=== PATIENT | female | born 1945 | race Caucasian/White ===

== ENCOUNTER 2023-04-08 00:02 | Inpatient (IN) | payer MEDICARE ==
[2023-04-08] MEDS ORDERED: Ondansetron PF 4 MG/2 ML Vial ONE ×2 (02:10→12:37)
[2023-04-08] MEDS ORDERED: Morphine 4 MG/ML VIAL ONE (02:10)
[2023-04-08 02:45] LABS: #Eosinphils 0.1 thou/uL (0.0-0.7); #Monocytes 0.6 thou/uL (0.11-0.59); #Neutrophils 6.8 thou/uL (1.40-6.50); %Basophils 0.3 % (0.0-1.0); %Eosinophils 0.9 % (0.0-10.0); %Lymphocytes 15.7 % (21.0-51.0); %Monocytes 7.1 % (0.0-10.0); %Neutrophils 75.7 % (42.0-75.0); Hematocrit 35.2 % (36.0-47.0); Hemoglobin 11.2 g/dL (12.0-16.0); Mean Corpuscular HGB CONC 31.8 g/dL (32.0-36.0); Mean Corpuscular Volume 94.4 fl (78.0-98.0); Mean Platelet Volume 13.1 fL (7.4-10.4); Platelet Count 193 10x3/uL (130-400); RBC Distribution Width 13.8 % (11.5-14.5); Red Blood Cell (RBC) Count 3.73 mill/uL (4.20-5.40)
[2023-04-08 03:12] LABS: ALT (SGPT) 10 U/L (8-55); AST (SGOT) 16 U/L (5-34); Albumin 4.1 g/dL (3.4-4.8); Alkaline Phosphatase 78 U/L (40-110); Anion Gap 15 mmol/L (10-20); BUN (Urea Nitrogen) 26 mg/dL (9.8-20.1); Bilirubin, Total 0.2 mg/dL (0.2-1.2); Calc. Creatinine Clearance 0 mL/min (70-130); Calcium 9.2 mg/dL (7.8-10.44); Carbon Dioxide 22 mmol/L (23-31); Chloride 103 mmol/L (98-107); Estimated GFR 54; Globulin 3.1 g/dL (2.4-3.5); Glucose 126 mg/dL (83-110); Potassium 3.8 mmol/L (3.5-5.1); Protein, Total 7.2 g/dL (5.8-8.1); Sodium 136 mmol/L (136-145)
[2023-04-08] MEDS: Morphine 4 MG/ML VIAL SLOW IVP PRN (05:44)
[2023-04-08 07:21] VITALS: BMI 23.0
[2023-04-08] MEDS ORDERED: Acetaminophen 325 MG TAB PO PRN (10:06)
[2023-04-08] MEDS ORDERED: Ondansetron PF 4 MG/2 ML Vial IVP PRN (10:07)
[2023-04-08] MEDS ORDERED: Ondansetron ODT 4 MG TAB PO PRN (10:08)
[2023-04-08] MEDS ORDERED: PROPOFOL 20 ML ONE (11:05)
[2023-04-08] MEDS ORDERED: Rocuronium Bromide 10 MG/ML (10ML VIAL) ONE (11:05)
[2023-04-08] MEDS ORDERED: fentaNYL PF 100 MCG/2 ML SYRINGE ONE (11:05)
[2023-04-08] MEDS ORDERED: Sodium Chloride 0.9% 100 ML ONE (11:17)
[2023-04-08] MEDS ORDERED: CEFAZOLIN 2 GM VIAL ONE (11:17)
[2023-04-08] MEDS ORDERED: Ketorolac Tromethamine 30 MG/ML VIAL IVP PRN (11:56)
[2023-04-08] MEDS ORDERED: Ondansetron HCl/PF 4 MG/2 ML Vial IVP PRN (11:56)
[2023-04-08] MEDS ORDERED: Promethazine HCl 25 MG/ML VIAL IM PRN (11:56)
[2023-04-08] MEDS ORDERED: Ketorolac Tromethamine 30 MG (1 mL) VIAL ONE (12:20)
[2023-04-08] MEDS ORDERED: Lidocaine 1% PF 5 ML VIAL ONE (12:20)
[2023-04-08] MEDS ORDERED: Dexamethasone 4 mg/ml Vial ONE (12:37)
[2023-04-08] MEDS ORDERED: Metoclopramide HCl 10 MG (2 mL) VIAL ONE (12:37)
[2023-04-08] MEDS ORDERED: Glycopyrrolate 0.2 MG/ML 5 ML SYRINGE ONE (12:38)
[2023-04-08] MEDS ORDERED: fentaNYL 50 mcg/mL 1 mL Vial ONE (14:11)
[2023-04-08] MEDS: CEFAZOLIN 2 GM in Sodium Chloride 0.9% 100 ML IVPB SCH (20:49)
[2023-04-08] MEDS: traMADol HCl 50 MG TAB PO PRN (20:50)
[2023-04-09 05:23] LABS: #Monocytes 0.7 thou/uL (0.11-0.59); #Neutrophils 6.2 thou/uL (1.40-6.50); %Monocytes 8.5 % (0.0-10.0); %Neutrophils 79.2 % (42.0-75.0); Mean Corpuscular HGB CONC 30.5 g/dL (32.0-36.0); Mean Corpuscular Hemoglobin 30.3 pg (27.0-31.0); Mean Corpuscular Volume 99.2 fl (78.0-98.0); Mean Platelet Volume 13.1 fL (7.4-10.4); Platelet Count 155 10x3/uL (130-400); RBC Distribution Width 14.4 % (11.5-14.5); Red Blood Cell (RBC) Count 2.64 mill/uL (4.20-5.40); White Blood Cell (WBC) Count 7.8 10x3/uL (4.8-10.8)
[2023-04-09 05:43] LABS: Hematocrit 26.2 % (36.0-47.0)
[2023-04-10 04:18] LABS: #Eosinphils 0.1 thou/uL (0.0-0.7); #Monocytes 1.1 thou/uL (0.11-0.59); #Neutrophils 5.9 thou/uL (1.40-6.50); %Basophils 0.3 % (0.0-1.0); %Eosinophils 0.7 % (0.0-10.0); %Monocytes 12.2 % (0.0-10.0); %Neutrophils 65.4 % (42.0-75.0); Hematocrit 23.5 % (36.0-47.0); Hemoglobin 7.4 g/dL (12.0-16.0); Mean Corpuscular HGB CONC 31.5 g/dL (32.0-36.0); Mean Corpuscular Hemoglobin 30.5 pg (27.0-31.0); Mean Corpuscular Volume 96.7 fl (78.0-98.0); Mean Platelet Volume 12.8 fL (7.4-10.4); Platelet Count 148 10x3/uL (130-400); RBC Distribution Width 14.3 % (11.5-14.5); Red Blood Cell (RBC) Count 2.43 mill/uL (4.20-5.40)
[2023-04-10 04:44] LABS: Anion Gap 10 mmol/L (10-20); BUN (Urea Nitrogen) 11 mg/dL (9.8-20.1); Calc. Creatinine Clearance 50 mL/min (70-130); Calcium 8.3 mg/dL (7.8-10.44); Carbon Dioxide 27 mmol/L (23-31); Chloride 99 mmol/L (98-107); Estimated GFR 69; Glucose 133 mg/dL (83-110); Potassium 4.2 mmol/L (3.5-5.1); Sodium 132 mmol/L (136-145)
[2023-04-10 08:10] LABS: Bacteria/HPF None Seen HPF (None Seen); Bilirubin Negative (Negative); Blood, Urine Negative (Negative); CAUTI Indications for Culture Fever or rigors; Clarity Clear (Clear); Glucose, Urine (Dipstick) Normal (Negative); Ketone, Urine Negative (Negative); Leukocyte Negative Leu/uL (Negative); Nitrite Negative (Negative); Protein, Urine (Dipstick) Negative (Neg-Trace); RBC/HPF 0-3 HPF (0-3); Specific Gravity, Urine 1.013 (1.002-1.036); Squamous Epithelial 0-3 HPF (0-3); Urobilinogen Normal mg/dL (Less than 2); WBC/HPF None Seen HPF (0-3); pH, Urine 6.5 (5.0-9.0)
[2023-04-10 08:22] LABS: Urine Culture Reflex No No
[2023-04-10] MEDS: Polyethylene Glycol 3350 17 GM Packet PO SCH (10:51)
[2023-04-10] MEDS: HYDROcodone/Acetaminophen 5/325 mg Tablet PO PRN (11:34)
[2023-04-11] MEDS ORDERED: Polyethylene Glycol 3350 17 GM Packet PO SCH (09:00)
[2023-04-11] MEDS: Polyethylene Glycol 3350 17 GM Packet PO SCH (10:22)
[2023-04-11] MEDS: Senokot S 8.6-50 MG TAB PO SCH (10:22)
[2023-04-11] MEDS ORDERED: traMADol HCl 50 MG TAB PO PRN (11:29)
[2023-04-11] MEDS: Amiodarone 200 MG TAB PO SCH (13:54)
[2023-04-11] MEDS: Acetaminophen 500 MG TAB PO SCH (13:55)
[2023-04-11] MEDS: Metoprolol Tartrate 25 MG TAB PO SCH ×2 (13:55→21:13)
[2023-04-11] MEDS: traMADol HCl 50 MG TAB PO SCH (13:56)
[2023-04-11] MEDS: Lactulose 20 GM (30 mL) UDCUP PO SCH (13:56)
[2023-04-11] MEDS: Ferrous Sulfate 325 MG TAB PO SCH (17:10)
[2023-04-11] MEDS ORDERED: Metoprolol Tartrate 25 MG TAB PO SCH (21:00)
[2023-04-11] MEDS: Ascorbic Acid 500 mg Chewable Tablet PO SCH (21:13)
[2023-04-12 04:36] LABS: #Eosinphils 0.1 thou/uL (0.0-0.7); #Monocytes 0.8 thou/uL (0.11-0.59); #Neutrophils 5.2 thou/uL (1.40-6.50); %Basophils 0.4 % (0.0-1.0); %Eosinophils 1.5 % (0.0-10.0); %Lymphocytes 15.9 % (21.0-51.0); %Monocytes 11.2 % (0.0-10.0); %Neutrophils 70.6 % (42.0-75.0); Hematocrit 22.5 % (36.0-47.0); Mean Corpuscular HGB CONC 31.1 g/dL (32.0-36.0); Mean Corpuscular Hemoglobin 29.9 pg (27.0-31.0); Mean Corpuscular Volume 96.2 fl (78.0-98.0); Mean Platelet Volume 12.2 fL (7.4-10.4); Platelet Count 168 10x3/uL (130-400); Red Blood Cell (RBC) Count 2.34 mill/uL (4.20-5.40); White Blood Cell (WBC) Count 7.4 10x3/uL (4.8-10.8)
[2023-04-12] MEDS ORDERED: Clopidogrel Bisulfate 75 MG TAB PO SCH (09:00)
[2023-04-12] MEDS: Amiodarone 200 MG TAB PO SCH (09:39)
[2023-04-13] MEDS: Clopidogrel Bisulfate 75 MG TAB PO SCH (09:45)
[2023-04-13 16:50] VITALS: BP 136/68; TEMP 99
== END 2023-04-13 19:25 | DRG 493 ==
LOC: ERS 00:02 → SURG B 01:58
PROVIDERS: ADMIT Specialist; ATTEND Specialist
PROC: 0QSG06Z Reposition Right Tibia with Intramedullary Internal Fixation Device, Open Approach (ICD-10-PCS; principal; 2023-04-08)
PROC: 5A09457 Assistance with Respiratory Ventilation, 24-96 Consecutive Hours, Continuous Positive Airway Pressure (ICD-10-PCS; 2023-04-08)
DX: S82.251A Displaced comminuted fracture of shaft of right tibia, initial encounter for closed fracture (principal); D62 Acute posthemorrhagic anemia; I25.10 Atherosclerotic heart disease of native coronary artery without angina pectoris; E78.5 Hyperlipidemia, unspecified; F90.9 Attention-deficit hyperactivity disorder, unspecified type; S82.831A Other fracture of upper and lower end of right fibula, initial encounter for closed fracture; S82.401A Unspecified fracture of shaft of right fibula, initial encounter for closed fracture; Z95.1 Presence of aortocoronary bypass graft; Z79.899 Other long term (current) drug therapy; Z98.890 Other specified postprocedural states; W19.XXXA Unspecified fall, initial encounter; I69.334 Monoplegia of upper limb following cerebral infarction affecting left non-dominant side
CPT/HCPCS: 27752; 36415; 80048; 80053; 81001; 83735; 85025; 86850; 86900; 86901; 93005; 96374; 96375; C1713; J1100; J1885; J2270; J2405; J2704; J2765; J3010; J3490